=== PATIENT | male | born 1940 | race Caucasian/White ===

== ENCOUNTER 2018-02-06 10:47 | Inpatient (IN) | payer MEDICARE, OTHER ==
[~2018-02-06] VITALS: Ht 177.8 cm; Wt 93.0 kg
[~2018-02-06 10:47] MED LIST: AMLO10TA4 PO; ASPI-1264 PO; ATOR10TA87 PO; CLOP75TA35 PO; LISI-600 PO; METO-477 PO
[2018-02-06 11:13] LABS: BASOPHILS % (AUTO) 0.1 % (0-1); EOSINOPHILS # (AUTO) 0.2 X10'3 (0-0.9); EOSINOPHILS % (AUTO) 2.2 % (0-6); HEMATOCRIT 46.3 % (42.0-52.0); HEMOGLOBIN 15.8 g/dl (14.0-17.9); LYMPHOCYTES # (AUTO) 0.9 X10'3 (1.1-4.8); LYMPHOCYTES % (AUTO) 9.6 % (21-51); MEAN CORPUSCULAR HEMOGLOBIN 33.6 PG (27.0-31.0); MEAN CORPUSCULAR HGB CONC 34.1 % (33.0-36.5); MEAN CORPUSCULAR VOLUME 98.3 FL (78-98); MEAN PLATELET VOLUME 7.4 FL (7.4-10.4); MONOCYTES # (AUTO) 0.6 X10'3 (0-0.9); MONOCYTES % (AUTO) 6.5 % (2-12); NEUTROPHILS # (AUTO) 7.8 X10'3 (1.8-7.7); NEUTROPHILS % (AUTO) 81.6 % (42-75); PLATELET COUNT 263 X10'3 (140-440); RED BLOOD COUNT 4.71 X10'6 (4.70-6.10); RED CELL DISTRIBUTION WIDTH 14.9 % (11.5-14.5); WHITE BLOOD COUNT 9.5 X10'3 (4.5-11.0)
[2018-02-06] MEDS ORDERED: nitroGLYCERIN 0.2mg/hour patch TD ONE (11:20)
[2018-02-06 11:22] LABS: PARTIAL THROMBOPLASTIN TIME 24 SECONDS (22-32); PROTHROMBIN TIME 10.5 SECONDS (9.0-12.0)
[2018-02-06 11:34] LABS: ALANINE AMINOTRANSFERASE 22 U/L (12-78); ALBUMIN 4.1 G/DL (3.4-5.0); ALBUMIN/GLOBULIN RATIO 1.2 (1.1-1.5); ALKALINE PHOSPHATASE 87 IU/L (46-116); ANION GAP 11 (8-16); ASPARTATE AMINO TRANSFERASE 19 U/L (10-37); BILIRUBIN,TOTAL 1.4 MG/DL (0.1-1.0); BLOOD UREA NITROGEN 23 MG/DL (7-18); BUN/CREATININE RATIO 14.6 (5.4-32.0); CALCIUM 9.2 MG/DL (8.5-10.1); CHLORIDE 99 MMOL/L (99-107); CREATININE 1.58 MG/DL (0.60-1.10); GLUCOSE 112 MG/DL (70-104); POTASSIUM 4.5 MMOL/L (3.5-5.1); SODIUM 137 MMOL/L (135-145); TOTAL CARBON DIOXIDE 26.9 MMOL/L (24-32); TOTAL PROTEIN 7.6 G/DL (6.4-8.2); eGFR 43 ML/MIN
[2018-02-06] MEDS ORDERED: acetaminophen 325mg tablet PO PRN (13:25)
[2018-02-06] MEDS ORDERED: ondansetron/PF 4mg/2ml inj IV PRN (13:25)
[2018-02-06] MEDS ORDERED: mag hydrox/Alum hydrox/simeth 30ml oral suspension PO PRN (13:25)
[2018-02-06] MEDS ORDERED: magnesium hydroxide 30ml (MOM) UD suspension PO PRN (13:25)
[2018-02-06] MEDS: diatr meglu/diatrizoate 30ml oral sol.-(3 dose) bottle PO SCH ×3 (13:47→15:26)
[2018-02-06] MEDS ORDERED: nitroGLYCERIN 0.4mg SUBLingual tab SL PRN (13:50)
[2018-02-06] MEDS ORDERED: metoprolol tartrate 1mg/ml inj IV PRN (13:50)
[2018-02-06] MEDS ORDERED: regadenoson 0.4mg/5ml syringe IV ONE (13:50)
[2018-02-06] MEDS ORDERED: CAFFEINE CITRATE 60 MG/3 ML injection vial IV PRN (13:50)
[2018-02-06] MEDS: normal saline 1000ml 1,000 ML IV SCH (13:56)
[2018-02-06 15:00] VITALS: BP 94/66
[2018-02-06 19:10] VITALS: BP 102/65
[2018-02-06] MEDS: atorvastatin 10mg tablet PO SCH (21:24)
[2018-02-07] VITALS (11 sets, daily range): BP systolic 96–137; BP diastolic 51–81
[2018-02-07] MEDS: normal saline 1000ml 1,000 ML IV SCH ×3 (00:15→19:44)
[2018-02-07] MEDS: clopidogrel 75mg tablet PO SCH (07:43)
[2018-02-07] MEDS: lisinopril 20mg tablet PO SCH (07:46)
[2018-02-07] MEDS ORDERED: CAFFEINE CITRATE 60 MG/3 ML injection vial IV ONE (08:15)
[2018-02-07] MEDS ORDERED: regadenoson 0.4mg/5ml syringe IV ONE (08:15)
[2018-02-07] MEDS: aspirin 325mg tablet PO SCH (10:46)
[2018-02-07] MEDS: enoxaparin 40mg/0.4ml syringe SQ SCH (10:47)
[2018-02-07] MEDS ORDERED: OMEP20CA10 PO (11:42)
[2018-02-07] MEDS ORDERED: DIAZIDE PO (11:46)
[2018-02-07] MEDS ORDERED: HCTZ PO (11:46)
[2018-02-07] MEDS: atorvastatin 10mg tablet PO SCH (20:40)
[2018-02-08] VITALS (8 sets, daily range): BP systolic 102–140; BP diastolic 62–83
[2018-02-08] MEDS: normal saline 1000ml 1,000 ML IV SCH ×2 (06:00→15:25)
[2018-02-08] MEDS: aspirin 325mg tablet PO SCH (08:00)
[2018-02-08] MEDS: clopidogrel 75mg tablet PO SCH (08:00)
[2018-02-08] MEDS: enoxaparin 40mg/0.4ml syringe SQ SCH (08:00)
[2018-02-08] MEDS: lisinopril 20mg tablet PO SCH (08:00)
[2018-02-08] MEDS: metoprolol tartrate 25mg tablet PO SCH ×2 (08:52→21:29)
[2018-02-08 09:46] LABS: ALBUMIN 3.6 G/DL (3.4-5.0); ANION GAP 12 (8-16); BLOOD UREA NITROGEN 15 MG/DL (7-18); BUN/CREATININE RATIO 11.5 (5.4-32.0); CALCIUM 8.8 MG/DL (8.5-10.1); CHLORIDE 104 MMOL/L (99-107); CREATININE 1.31 MG/DL (0.60-1.10); GLUCOSE 102 MG/DL (70-104); POTASSIUM 3.7 MMOL/L (3.5-5.1); SODIUM 139 MMOL/L (135-145); TOTAL CARBON DIOXIDE 23.3 MMOL/L (24-32); eGFR 53 ML/MIN
[2018-02-08] MEDS ORDERED: heparin 1,000unit/ml 10ml vial 10 ML ONE (18:08)
[2018-02-08] MEDS ORDERED: nitroGLYCERIN-Tridil 50MG/D5W 250 ML IV ONE (18:08)
[2018-02-08] MEDS ORDERED: iohexol 350 MG/1 ML 200ml bottle ONE (18:08)
[2018-02-08] MEDS ORDERED: iohexol 350 MG/ML 50ML vial IV ONE (18:08)
[2018-02-08] MEDS ORDERED: heparin 1,000 UNITS/NS 500ml 500 ML ONE ×2 (18:08)
[2018-02-08] MEDS ORDERED: LIDOcaine 1% (10mg/ml) 2ml vial ONE (18:10)
[2018-02-08] MEDS ORDERED: fentaNYL/PF 50MCG/1 ML 2ML syringe ONE (18:30)
[2018-02-08] MEDS ORDERED: midazolam 2 mg/2 ml injection ONE (18:31)
[2018-02-08] MEDS ORDERED: iohexol 350MG/ML 100ml bottle IV ONE (19:31)
[2018-02-08] MEDS ORDERED: clopidogrel 300mg tablet ONE (19:45)
[2018-02-08] MEDS ORDERED: aspirin 325mg tablet PO ONE (20:45)
[2018-02-08] MEDS ORDERED: cyclobenzaprine 10mg tablet PO PRN (20:50)
[2018-02-08] MEDS ORDERED: OXAZEpam 15mg capsule PO PRN (20:50)
[2018-02-08] MEDS ORDERED: proCHLORperazine 10 MG/2 ml inj IV PRN (20:50)
[2018-02-08] MEDS: magnesium hydroxide 30ml (MOM) UD suspension PO SCH (21:00)
[2018-02-08] MEDS: atorvastatin 10mg tablet PO SCH (21:29)
[2018-02-08] MEDS: sodium bicarbonate (8.4%) inj. 150 MEQ in sodium chloride 0.45% 1,000 ML IV SCH (21:44)
[2018-02-09] VITALS (20 sets, daily range): BP systolic 91–154; BP diastolic 7–101
[2018-02-09] MEDS: acetaminophen 325mg tablet PO PRN ×2 (01:10→09:30)
[2018-02-09] MEDS: normal saline 1000ml 1,000 ML IV SCH ×2 (01:21→11:21)
[2018-02-09 06:03] LABS: HEMOGLOBIN 13.2 g/dl (14.0-17.9); MEAN CORPUSCULAR HEMOGLOBIN 34.3 PG (27.0-31.0); MEAN CORPUSCULAR HGB CONC 34.8 % (33.0-36.5); MEAN CORPUSCULAR VOLUME 98.6 FL (78-98); MEAN PLATELET VOLUME 7.9 FL (7.4-10.4); PLATELET COUNT 194 X10'3 (140-440); RED BLOOD COUNT 3.85 X10'6 (4.70-6.10); RED CELL DISTRIBUTION WIDTH 14.2 % (11.5-14.5); WHITE BLOOD COUNT 7.4 X10'3 (4.5-11.0)
[2018-02-09 06:51] LABS: ALBUMIN 3.1 G/DL (3.4-5.0); ANION GAP 11 (8-16); BLOOD UREA NITROGEN 12 MG/DL (7-18); BUN/CREATININE RATIO 10.9 (5.4-32.0); CALCIUM 8.4 MG/DL (8.5-10.1); CHLORIDE 105 MMOL/L (99-107); GLUCOSE 77 MG/DL (70-104); MAGNESIUM 1.1 MG/DL (1.5-2.4); SODIUM 141 MMOL/L (135-145); TOTAL CARBON DIOXIDE 24.8 MMOL/L (24-32); eGFR 65 ML/MIN
[2018-02-09] MEDS ORDERED: magnesium 4gm in 100ml NS 100 ML IV PRN (07:20)
[2018-02-09] MEDS ORDERED: magnesium 2GM in 50ml NS 50 ML IV PRN (07:20)
[2018-02-09] MEDS ORDERED: potassium Cl 20 mEq SR tablet PO PRN (07:20)
[2018-02-09] MEDS ORDERED: potassium Cl 40MEQ/NS 500ml 500 ML IV PRN ×2 (07:20)
[2018-02-09] MEDS: metoprolol tartrate 25mg tablet PO SCH ×2 (08:07→20:59)
[2018-02-09] MEDS: docusate sod 100mg capsule PO SCH ×2 (08:07→21:01)
[2018-02-09] MEDS: magnesium Cl slow-release 64mg tablet PO PRN ×2 (08:07→20:59)
[2018-02-09] MEDS: lisinopril 20mg tablet PO SCH (08:08)
[2018-02-09] MEDS: acetylcysteine 200 MG/ml 4ml vial PO SCH ×2 (08:08→21:01)
[2018-02-09] MEDS: clopidogrel 75mg tablet PO SCH (08:08)
[2018-02-09] MEDS: potassium Cl 20 mEq SR tablet PO PRN ×3 (08:08→20:58)
[2018-02-09] MEDS: aspirin 325mg tablet PO SCH (08:08)
[2018-02-09] MEDS: sodium bicarbonate (8.4%) inj. 150 MEQ in sodium chloride 0.45% 1,000 ML IV SCH (09:06)
[2018-02-09] MEDS ORDERED: HYDROcodone/acetaminophen 5mg/325mg tablet PO PRN ×2 (14:55)
[2018-02-09] MEDS: atorvastatin 10mg tablet PO SCH (21:00)
[2018-02-09] MEDS: magnesium hydroxide 30ml (MOM) UD suspension PO SCH (21:00)
[2018-02-10 02:00] VITALS: BP 103/65
[2018-02-10 05:27] LABS: MAGNESIUM 1.2 MG/DL (1.5-2.4); POTASSIUM 4.9 MMOL/L (3.5-5.1)
[2018-02-10 07:00] VITALS: BP 105/70
[2018-02-10] MEDS: docusate sod 100mg capsule PO SCH (08:00)
[2018-02-10] MEDS: aspirin 325mg tablet PO SCH (08:09)
[2018-02-10] MEDS: clopidogrel 75mg tablet PO SCH (08:09)
[2018-02-10] MEDS: metoprolol tartrate 25mg tablet PO SCH (08:10)
[2018-02-10] MEDS: lisinopril 20mg tablet PO SCH (08:10)
[2018-02-10] MEDS: magnesium Cl slow-release 64mg tablet PO PRN (08:10)
[2018-02-10] MEDS: acetylcysteine 200 MG/ml 4ml vial PO SCH (08:11)
[2018-02-10] MEDS ORDERED: METO25TA6 PO (10:36)
[2018-02-10] MEDS ORDERED: NITR0.4T51 SL (10:36)
[2018-02-10] MEDS ORDERED: MAGN400C PO (10:50)
[2018-02-10 11:00] VITALS: BP 114/79
== END 2018-02-10 13:07 | disposition home or self-care (01) | DRG 246 ==
LOC: ER 10:47 → PACU 13:21 → SUR 3N 14:50 → CICU 2S 02-08 20:17 → PCU 3S 02-09 18:05
PROVIDERS: ADMIT Internal Medicine; ATTEND Family Medicine
PROC: 3E073KZ Introduction of Other Diagnostic Substance into Coronary Artery, Percutaneous Approach (ICD-10-PCS; 2018-02-07)
PROC: 4A02XM4 Measurement of Cardiac Total Activity, External Approach (ICD-10-PCS; 2018-02-07)
PROC: 4A023N7 Measurement of Cardiac Sampling and Pressure, Left Heart, Percutaneous Approach (ICD-10-PCS; principal; 2018-02-08)
PROC: 027034Z Dilation of Coronary Artery, One Artery with Drug-eluting Intraluminal Device, Percutaneous Approach (ICD-10-PCS; 2018-02-08)
PROC: B2111ZZ Fluoroscopy of Multiple Coronary Arteries using Low Osmolar Contrast (ICD-10-PCS; 2018-02-08)
PROC: B2151ZZ Fluoroscopy of Left Heart using Low Osmolar Contrast (ICD-10-PCS; 2018-02-08)
PROC: B240ZZ3 Ultrasonography of Single Coronary Artery, Intravascular (ICD-10-PCS; 2018-02-08)
DX: T82.855A Stenosis of coronary artery stent, initial encounter (principal); N17.0 Acute kidney failure with tubular necrosis; K56.7 Ileus, unspecified; E83.42 Hypomagnesemia; I25.10 Atherosclerotic heart disease of native coronary artery without angina pectoris; N18.9 Chronic kidney disease, unspecified; E87.6 Hypokalemia; E78.00 Pure hypercholesterolemia, unspecified; E78.5 Hyperlipidemia, unspecified; M25.569 Pain in unspecified knee; I12.9 Hypertensive chronic kidney disease with stage 1 through stage 4 chronic kidney disease, or unspecified chronic kidney disease; Y83.1 Surgical operation with implant of artificial internal device as the cause of abnormal reaction of the patient, or of later complication, without mention of misadventure at the time of the procedure; Z95.5 Presence of coronary angioplasty implant and graft; Z79.82 Long term (current) use of aspirin; Z79.02 Long term (current) use of antithrombotics/antiplatelets; Z79.899 Other long term (current) drug therapy; Z85.46 Personal history of malignant neoplasm of prostate; Z85.819 Personal history of malignant neoplasm of unspecified site of lip, oral cavity, and pharynx; Z86.73 Personal history of transient ischemic attack (TIA), and cerebral infarction without residual deficits; Z87.891 Personal history of nicotine dependence; Z82.49 Family history of ischemic heart disease and other diseases of the circulatory system; Z80.9 Family history of malignant neoplasm, unspecified; Y92.89 Other specified places as the place of occurrence of the external cause
CPT/HCPCS: 92978; 93458; 99285; C9600; 36415; 71045; 74018; 74176; 78451; 80048; 80053; 83735; 83880; 84132; 84484; 85025; 85027; 85347; 85610; 85730; 87070; 93005; 93017; 99152; 99153; A4620; A6213; A6257; A6449; A9500; C1725; C1753; C1769; C1874; J1644; J1650; J2250; J2405; J2785; J3010; J3490; J7030; Q9963; Q9967